=== PATIENT | female | born 2000 | race American Indian/Alaskan Native ===

== ENCOUNTER 2018-07-02 16:48 | Emergency (ER) | payer MEDICAID, OTHER ==
--- NOTE | 2018-07-02 17:36 | Emergency Department Report ---
<JAYESH BLACK AKIRAWEN - Last Filed: 07/02/18 19:03> ED Female HPI - General Chief complaint: Abdominal Pain Stated complaint: LOWER ABD PAIN Source: patient Mode of arrival: Ambulatory Limitations: No Limitations - History of Present Illness Initial comments: This is a 17-year-old female who presents with pelvic pain and light vaginal bleeding for 3 days. Patient reports last menstrual period was a couple weeks ago. She reports a history of severe abdominal cramping heavy bleeding during menses. Currently patient noticed blood with white. She also reports pressure 2 suprapubic region that is worse with movement. She denies dysuria, back pain, vaginal discharge, frequency, or urgency. MD Complaint: pelvic pain Onset/Timin -: days(s) Location: suprapubic Radiation: non-radiating Severity: severe Severity scale (0 -10): 10 Quality: other (pressurev) Consistency: intermittent Improves with: none Worsens with: movement Are you Now?: No Last Menstrual Period: 06/18/18 EDC: 03/25/19 Associated Symptoms: vaginal bleeding, abdominal pain. denies: vaginal discharge, nausea/vomiting, fever/chills, headaches, loss of appetite, dysuria, hematuria, rash, seizure, shortness of breath, syncope, weakness - Related Data Sexually active: No : 0 Para: 0 A: 0 Previous Rx's Medication Instructions Recorded Last Taken Type Acetaminophen/Codeine [Tylenol #3] 1 tab PO Q6H PRN #12 tab 09/10/13 Unknown Rx Ferrous Sulfate [Iron] 325 mg PO BID #60 tablet 07/03/18 Unknown Rx Ibuprofen 800 mg PO TID PRN #30 tablet 07/03/18 Unknown Rx Sennosides [Senna] 8.6 mg PO BID #60 tablet 07/03/18 Unknown Rx Allergies Allergy/AdvReac Type Severity Reaction Status Date / Time No Known Allergies Allergy Unverified 09/10/13 21:01 ED Review of Systems Constitutional: denies: chills, fever Respiratory: denies: cough, shortness of breath, wheezing Cardiovascular: denies: chest pain, palpitations Gastrointestinal: abdominal pain. denies: nausea, diarrhea Genitourinary: abnormal menses. denies: urgency, dysuria, discharge Musculoskeletal: denies: back pain Neurological: denies: headache, weakness, paresthesias Psychiatric: denies: anxiety, depression ED Past Medical Hx - Past Medical History Previous Medical History?: No - Surgical History Past Surgical History?: No - Social History Smoking Status: Never Smoker Substance Use Type: None - Medications Home Medications: Home Medications Medication Instructions Recorded Confirmed Last Taken Type Acetaminophen/Codeine [Tylenol #3] 1 tab PO Q6H PRN #12 tab 09/10/13 Unknown Rx Ferrous Sulfate [Iron] 325 mg PO BID #60 tablet 07/03/18 Unknown Rx Ibuprofen 800 mg PO TID PRN #30 tablet 07/03/18 Unknown Rx Sennosides [Senna] 8.6 mg PO BID #60 tablet 07/03/18 Unknown Rx ED Physical Exam - General Limitations: No Limitations General appearance: alert, in no apparent distress - Respiratory Respiratory exam: Present: normal lung sounds bilaterally. Absent: respiratory distress - Cardiovascular Cardiovascular Exam: Present: regular rate, normal rhythm. Absent: systolic murmur, diastolic murmur, rubs, gallop - GI/Abdominal GI/Abdominal exam: Present: soft, tenderness (right upper quadrant and left lower quadrant tenderness), normal bowel sounds. Absent: distended, guarding, rebound, rigid - Back Exam Back exam: Absent: CVA tenderness (R), CVA tenderness (L) - Neurological Exam Neurological exam: Present: alert, oriented X3 - Psychiatric Psychiatric exam: Present: normal affect, normal mood - Skin Skin exam: Present: warm, dry, intact, normal color. Absent: rash ED Medical Decision Making - Lab Data Result diagrams: 07/02/18 18:21 - Medical Decision Making Patient was examined by me. Vitals are normal and patient is in no acute distress. Obtained a urinalysis, urine hCG, CBC, and transvaginal and pelvic ultrasound. Negative test, moderate blood on urinalysis. CBC and ultrasound pending. Chart signed to nurse practitioner Amalia Garza ED Disposition Clinical Impression: Symptomatic anemia Iron deficiency anemia Qualifiers: Iron deficiency anemia type: chronic blood loss Qualified Code(s): D50.0 - Iron deficiency anemia secondary to blood loss (chronic) Menorrhagia Qualifiers: Menorrahagia type: with regular cycle Qualified Code(s): N92.0 - Excessive and frequent menstruation with regular cycle Disposition: TO HOME OR SELFCARE Condition: Stable Instructions: Iron Deficiency Anemia (ED), Iron Rich Diet (ED), Anemia (ED), Abdominal Pain (ED) Prescriptions: Ferrous Sulfate [Iron] 325 mg PO BID #60 tablet Ibuprofen 800 mg PO TID PRN #30 tablet PRN Reason: Pain , Severe (7-10) Sennosides [Senna] 8.6 mg PO BID #60 tablet Referrals: DEENA CHAND MD [Staff Physician] - 3-5 Days Forms: Work/School Release Form(ED) <TRENTON GARZA - Last Filed: 07/03/18 06:40> ED Review of Systems ROS: Stated complaint: LOWER ABD PAIN Other details as noted in HPI ED Course Vital Signs 07/02/18 07/02/18 07/02/18 16:52 19:10 20:23 Temperature 100.1 F H Pulse Rate 77 99 H Respiratory 16 17 15 Rate Blood Pressure 110/70 Blood Pressure 117/72 [Right] O2 Sat by Pulse 99 100 Oximetry 07/02/18 07/02/18 07/02/18 21:52 22:04 22:20 Temperature 99.2 F 99.2 F 99.3 F Pulse Rate 85 83 84 Respiratory 20 20 20 Rate Blood Pressure 114/57 108/48 106/61 Blood Pressure [Right] O2 Sat by Pulse 100 100 100 Oximetry 07/02/18 07/02/18 07/02/18 22:50 23:03 23:06 Temperature 99.3 F 99.5 F Pulse Rate 85 85 Respiratory 20 20 20 Rate Blood Pressure 99/55 101/55 Blood Pressure [Right] O2 Sat by Pulse 100 100 Oximetry 07/02/18 07/02/18 07/03/18 23:18 23:48 00:06 Temperature 99.5 F 99.3 F Pulse Rate 86 85 Respiratory 20 20 20 Rate Blood Pressure 100/59 100/57 Blood Pressure [Right] O2 Sat by Pulse 100 100 Oximetry 07/03/18 07/03/18 07/03/18 00:18 00:39 00:43 Temperature 99.4 F 99.2 F 99.3 F Pulse Rate 88 87 81 Respiratory 20 20 20 Rate Blood Pressure 101/60 90/48 90/45 Blood Pressure [Right] O2 Sat by Pulse 100 100 100 Oximetry 07/03/18 07/03/18 07/03/18 01:04 01:19 01:49 Temperature 99.3 F 99.3 F 99.3 F Pulse Rate 80 81 76 Respiratory 20 20 20 Rate Blood Pressure 93/50 92/41 107/59 Blood Pressure [Right] O2 Sat by Pulse 100 100 100 Oximetry 07/03/18 07/03/18 07/03/18 02:19 02:20 02:49 Temperature 99.2 F 99.3 F 99.3 F Pulse Rate 76 77 75 Respiratory 20 20 20 Rate Blood Pressure 102/57 102/57 102/63 Blood Pressure [Right] O2 Sat by Pulse 100 100 100 Oximetry 07/03/18 03:18 Temperature 99.3 F Pulse Rate 77 Respiratory 20 Rate Blood Pressure 102/63 Blood Pressure [Right] O2 Sat by Pulse 100 Oximetry ED Medical Decision Making - Lab Data Result diagrams: 07/03/18 05:38 Labs 07/02/18 07/02/18 17:05 18:21 WBC 11.5 H RBC 3.42 L Hgb 5.1 L* Hct 19.5 L* MCV 57 L MCH 15 L MCHC 26 L RDW 31.0 H Plt Count 67 L Urine Color Yellow Urine Turbidity Clear Urine pH 5.0 Ur Specific [place] 1.023 Urine Protein 30 mg/dl Urine Glucose (UA) Neg Urine Ketones 20 Urine Blood Mod Urine Nitrite Neg Urine Bilirubin Neg Urine Urobilinogen < 2.0 Ur Leukocyte Esterase Neg Urine WBC (Auto) < 1.0 Urine RBC (Auto) 19.0 U Epithel Cells (Auto) 2.0 Urine Mucus 3+ Urine HCG, Qual Negative - Medical Decision Making h/h 5.1/19.7, Ultrasound, there is minimal vaginal spotting at this time no fever or chills no n/v , pt has hx of Fe deficiency anemia, hospitalist consulted, recommendation Transfuse PRBC x 3 units , premedicate with benadryl and tylenol, consent noted, discussed same with patient, patient verbalized understanding and agreement with treatment plan. will dc to home with FESO4 325mg po bid, follow up INDUSTRIAL ANALYST in 1-2 days, return to ed if symptoms worsen, 0631: PRBC x 3 unit Iv is completed pt tolerated without incident, repeat H/h is 9.3 and /29.4, plan, dc to home with rx for FESO4 325mg po bid, follow up INDUSTRIAL ANALYST Dr. Chand in 2 days return to emergency if symptoms return or worsen, pt verbalized agreement and understanding of same pt denies vaginal bleeding at this time, no n/v no fever no chills , pt home in stable condition at this time. Critical care attestation.: If time is entered above; I have spent that time in minutes in the direct care of this critically ill patient, excluding procedure time. ED Disposition Is pt being admited?: No Does the pt Need Aspirin: No Time of Disposition: 06:38
[2018-07-02] MEDS ORDERED: TYLENOL PO ONE ×2 (17:41→20:28)
[2018-07-02 17:56] LABS: Bilirubin,Urine NEG (Negative); Blood,Urine MOD (Negative); Color,Urine Yellow (Yellow); Mucus,Urine 3+ /HPF; Urobilinogen,Urine < 2.0 mg/dL (<2.0); WBC,Urine < 1.0 /HPF (0.0-6.0)
[2018-07-02 18:01] LABS: HCG Qualitative,Urine Negative (Negative)
[2018-07-02 18:35] LABS: Mean Corpuscular HGB Conc 26 % (30-34); Red Blood Count 3.42 M/mm3 (3.65-5.03)
[2018-07-02 18:55] LABS: Hematocrit 19.5 % (30.3-42.9); Hemoglobin 5.1 gm/dl (10.1-14.3); Mean Corpuscular Volume 57 fl (79-97)
[2018-07-02 19:37] LABS: Platelet Count 67 K/mm3 (140-440)
[2018-07-02] MEDS ORDERED: BENADRYL PO ONE (20:28)
[2018-07-02] MEDS ORDERED: NACL 0.9% 500 ML 500 ML IV ONE (20:28)
[2018-07-02] MEDS ORDERED: NACL 0.9% 1000 ML 1,000 ML IV ONE (20:28)
--- NOTE | 2018-07-02 20:36 | Consultation ---
History of Present Illness - Reason for Consult Consult date: 07/02/18 anemia - History of Present Illness 17 YO Female with Menorrhagia and iron deficiency anemia presents to ED for evaluation. Pt seen and evaluated in ED and found to have anemia. Pt denies fever, chills, CP, Palpitations, NVD, Trauma, BRBPR, Unintentional weight loss, night sweats, or bone pain. Recommend PRBC transfusion, as well as premedication with Tylenol and Benadryl. Pt may be discharged home after transfusion. Notify hospitalist if further concerns, or abnormal test results. Outpatient LASTING ROOM SUPERVISOR f/u care. Past History Past Medical History: anemia Past Surgical History: No surgical history, Other (reviewed) Social history: single, lives with family Family history: other (anemia) Medications and Allergies Allergies Allergy/AdvReac Type Severity Reaction Status Date / Time No Known Allergies Allergy Unverified 09/10/13 21:01 Home Medications Medication Instructions Recorded Confirmed Last Taken Type Acetaminophen/Codeine [Tylenol #3] 1 tab PO Q6H PRN #12 tab 09/10/13 Unknown Rx Active Meds: Active Medications Sodium Chloride (Nacl 0.9% 1000 Ml) 1,000 mls @ 999 mls/hr IV BOLUS ONE Stop: 07/02/18 21:28 Review of Systems Constitutional: weakness, no weight gain, no fever, no chills, no sweats, no night sweats Ears, nose, mouth and throat: no ear pain, no ear discharge, no tinnitis, no decreased hearing, no nose pain, no nasal congestion, no nasal discharge Breasts: no change in shape, no swelling, no mass Cardiovascular: no chest pain, no orthopnea, no palpitations, no edema, no syncope Respiratory: no cough, no cough with sputum, no excessive sputum, no hemoptysis, no dyspnea on exertion Gastrointestinal: no nausea, no vomiting, no diarrhea, no constipation Genitourinary Female: menorrhagia, no pelvic pain, no flank pain, no urinary frequency, no urgency, no stress incontinence, no post void dribbling Rectal: no pain, no incontinence, no bleeding Musculoskeletal: no neck stiffness, no neck pain, no shooting arm pain, no arm numbness/tingling, no low back pain Integumentary: no rash, no pruritis, no sores, no wounds, no boils Neurological: no head injury, no transient paralysis, no paralysis Psychiatric: no anxiety, no memory loss, no sleep disturbances, no hypersomnia Endocrine: no cold intolerance, no heat intolerance, no polyphagia, no excessive thirst, no polyuria Hematologic/Lymphatic: no easy bruising, no easy bleeding Allergic/Immunologic: no urticaria, no allergic rhinitis, no wheezing Exam - Constitutional Vitals: Temp Pulse Resp BP Pulse Ox 100.1 F H 99 H 15 117/72 100 07/02/18 16:52 07/02/18 20:23 07/02/18 20:23 07/02/18 20:23 07/02/18 20:23 General appearance: Present: no acute distress, well-nourished - EENT Eyes: Present: PERRL ENT: hearing intact, clear oral mucosa - Neck Neck: Present: supple, normal ROM - Respiratory Respiratory effort: normal Respiratory: bilateral: CTA - Cardiovascular Heart Sounds: Present: S1 & S2. Absent: rub, click - Extremities Extremities: pulses symmetrical, No edema Peripheral Pulses: within normal limits - Abdominal General gastrointestinal: Present: soft, non-tender, non-distended, normal bowel sounds Female genitourinary: Present: normal - Integumentary Integumentary: Present: clear, warm, dry - Musculoskeletal Musculoskeletal: gait normal, strength equal bilaterally - Psychiatric Psychiatric: appropriate mood/affect, intact judgment & insight - Neurologic Neurologic: CNII-XII intact, moves all extremities Results - Labs CBC & Chem 7: 07/02/18 18:21 Labs: Abnormal lab results 07/02/18 Range/Units 18:21 WBC 11.5 H (4.5-11.0) K/mm3 RBC 3.42 L (3.65-5.03) M/mm3 Hgb 5.1 L* (10.1-14.3) gm/dl Hct 19.5 L* (30.3-42.9) % MCV 57 L (79-97) fl MCH 15 L (28-32) pg MCHC 26 L (30-34) % RDW 31.0 H (13.2-15.2) % Plt Count 67 L (140-440) K/mm3 Assessment and Plan - Patient Problems (1) Iron deficiency anemia Current Visit: Yes Status: Acute Qualifiers: Iron deficiency anemia type: chronic blood loss Qualified Code(s): D50.0 - Iron deficiency anemia secondary to blood loss (chronic) Plan to address problem: PRBC Transfusion, Iron replacement therapy, OUtpatient f/U pcp 1wk, LASTING ROOM SUPERVISOR f/U at discharge for menorrhagia.
--- NOTE | 2018-07-02 21:41 | Ultrasound Report ---
FINAL REPORT EXAM: US PELVIC COMPLETE HISTORY: pelvic pain TECHNIQUE: Real-time sonography was performed of the pelvis transabdominally. Images are submitted f or interpretation. PRIORS: None. FINDINGS: The uterus appears normal measuring 7.8 x 3.7 x 4.5 cm. The endometrial stripe appears normal measuri ng 14 mm. There is a complex cyst with a thick septation or 2 adjacent follicles in the right ovary, measured t ogether at 3.4 x 3.3 x 3.5 cm. The right ovary measures 3.7 x 4.6 x 4.5 cm. The left ovary appears normal measuring 3.5 x 2.2 x 2.4 cm cm. Color Doppler evaluation of the ovaries shows flow bilaterally. There is no free pelvic fluid. IMPRESSION: Complex cyst with a thick septation or 2 adjacent follicles in the right ovary. Recommend follow-up p elvic ultrasound 6-8 weeks.
[2018-07-02] MEDS ORDERED: TYLENOL ONE (23:03)
[2018-07-03 05:51] LABS: Hematocrit 29.4 % (30.3-42.9); Hemoglobin 9.3 gm/dl (10.1-14.3)
[2018-07-03 06:32] VITALS: BP 110/72
== END 2018-07-03 07:04 | disposition home or self-care (01) ==
LOC: ED 16:48
DX: D50.9 Iron deficiency anemia, unspecified (principal); D64.89 Other specified anemias; N92.0 Excessive and frequent menstruation with regular cycle
CPT/HCPCS: 36415; 36430; 76856; 81001; 81025; 85014; 85018; 85027; 86850; 86900; 86901; 86920; 96360; 96361; 99284; J7030; P9016

== ENCOUNTER 2019-02-14 18:43 | Emergency (ER) | payer SELFPAY ==
--- NOTE | 2019-02-14 18:47 | Emergency Department Report ---
Blank Doc - Documentation Documentation: 18-year-old female that presents with generalized weakness. This initial assessment/diagnostic orders/clinical plan/treatment(s) is/are subject to change based on patient's health status, clinical progression and re- assessment by fellow clinical providers in the ED. Further treatment and workup at subsequent clinical providers discretion. Patient/guardians urged not to elope from the ED as their condition may be serious if not clinically assessed and managed. Initial orders include: 1- Patient sent to [facility] for further evaluation and treatment 2- labs
[2019-02-14 19:03] LABS: Basophils # (Auto) 0.1 K/mm3 (0.0-0.1); Basophils % (Auto) 0.7 % (0.0-1.8); Eosinophils % (Auto) 0.4 % (0.0-4.3); Hematocrit 29.4 % (30.3-42.9); Lymphocytes # (Auto) 1.9 K/mm3 (1.2-5.4); Mean Corpuscular HGB Conc 30 % (30-34); Monocytes # (Auto) 0.6 K/mm3 (0.0-0.8); Monocytes % (Auto) 7.7 % (0.0-7.3); Platelet Count 218 K/mm3 (140-440); Red Blood Count 4.73 M/mm3 (3.65-5.03); Red Cell Distribution Width 19.9 % (13.2-15.2)
[2019-02-14 19:07] LABS: Mean Corpuscular Volume 62 fl (79-97)
[2019-02-14 19:16] VITALS: BP 115/66
[2019-02-14 19:16] LABS: BUN/Creatinine Ratio 25; Blood Urea Nitrogen 10 mg/dL (7-17); Calcium 9.3 mg/dL (8.4-10.2); Hemolysis Index 18
[2019-02-14 20:31] LABS: Bacteria,Urine 2+ /HPF (Negative); Bilirubin,Urine NEG (Negative); Blood,Urine NEG (Negative); Color,Urine Yellow (Yellow); Mucus,Urine 3+ /HPF; Urobilinogen,Urine < 2.0 mg/dL (<2.0)
[2019-02-14] MEDS ORDERED: REGLAN PO ONE (22:32)
[2019-02-14] MEDS ORDERED: KEFLEX PO ONE (22:32)
--- NOTE | 2019-02-14 23:12 | Emergency Department Report ---
ED General Adult HPI - General Chief complaint: Weakness Stated complaint: FEEL WEAK/DIZZY Time Seen by Provider: 02/14/19 18:46 Source: patient Mode of arrival: Ambulatory Limitations: No Limitations - History of Present Illness Initial comments: Patient is a nulliparous 18-year-old -[place] female with a history of chronic iron deficiency anemia presents to the ED with a complaint of acute onset persistent generalized weakness and fatigue, nausea and malaise and lack of appetite for the last 1 week. Patient admits that she missed her menstrual cycle last month but unsure whether she may be . Patient denies abdominal pain, vomiting, dysuria, urinary frequency and urgency, vaginal bleeding, chest pain, shortness of breath, fever, chills, cough, nasal and sinus congestion or diarrhea. MD Complaint: Weakness; Fatigue and malaise -: Sudden, week(s) (1) Location: head Radiation: non-radiation Severity scale (0 -10): 2 Quality: dull Consistency: intermittent Improves with: none Worsens with: none Associated Symptoms: denies other symptoms, loss of appetite, malaise, weakness. denies: confusion, chest pain, cough, diaphoresis, fever/chills, headaches, nausea/vomiting, rash, seizure, shortness of breath Treatments Prior to Arrival: none - Related Data Previous Rx's Medication Instructions Recorded Last Taken Type Acetaminophen/Codeine [Tylenol #3] 1 tab PO Q6H PRN #12 tab 09/10/13 Unknown Rx Ferrous Sulfate [Iron 325 MG] 325 mg PO BID #60 tablet 07/03/18 Unknown Rx Ibuprofen [Ibuprofen 800] 800 mg PO TID PRN #30 tablet 07/03/18 Unknown Rx Sennosides [Senna] 8.6 mg PO BID #60 tablet 07/03/18 Unknown Rx 78/Iron/Folate 1/Dha 1 each PO DAILY #60 capsule 02/14/19 Unknown Rx [Prenate Dha Softgel] Promethazine [Phenergan] 25 mg PO Q6HR PRN #30 tab 02/14/19 Unknown Rx cephALEXin [Keflex] 500 mg PO Q8HR #30 cap 02/14/19 Unknown Rx Allergies Allergy/AdvReac Type Severity Reaction Status Date / Time No Known Allergies Allergy Unverified 09/10/13 21:01 ED Review of Systems ROS: Stated complaint: FEEL WEAK/DIZZY Other details as noted in HPI Constitutional: malaise, weakness. denies: chills, fever Eyes: denies: eye pain, eye discharge, vision change ENT: denies: ear pain, throat pain Respiratory: denies: cough, shortness of breath, wheezing Cardiovascular: denies: chest pain, palpitations, dyspnea on exertion, syncope, paroxysmal nocturnal dyspnea Endocrine: no symptoms reported Gastrointestinal: nausea. denies: abdominal pain, diarrhea, constipation, hematemesis Genitourinary: denies: urgency, dysuria, frequency, hematuria, discharge, abnormal menses, dyspareunia Musculoskeletal: denies: back pain, joint swelling, arthralgia Skin: denies: rash, lesions Neurological: denies: headache, weakness, paresthesias Psychiatric: denies: anxiety, depression Hematological/Lymphatic: denies: easy bleeding, easy bruising ED Past Medical Hx - Past Medical History Previous Medical History?: No - Surgical History Past Surgical History?: No - Social History Smoking Status: Never Smoker Substance Use Type: None - Medications Home Medications: Home Medications Medication Instructions Recorded Confirmed Last Taken Type Acetaminophen/Codeine [Tylenol #3] 1 tab PO Q6H PRN #12 tab 09/10/13 Unknown Rx Ferrous Sulfate [Iron 325 MG] 325 mg PO BID #60 tablet 07/03/18 Unknown Rx Ibuprofen [Ibuprofen 800] 800 mg PO TID PRN #30 tablet 07/03/18 Unknown Rx Sennosides [Senna] 8.6 mg PO BID #60 tablet 07/03/18 Unknown Rx 78/Iron/Folate 1/Dha 1 each PO DAILY #60 capsule 02/14/19 Unknown Rx [Prenate Dha Softgel] Promethazine [Phenergan] 25 mg PO Q6HR PRN #30 tab 02/14/19 Unknown Rx cephALEXin [Keflex] 500 mg PO Q8HR #30 cap 02/14/19 Unknown Rx ED Physical Exam - General Limitations: No Limitations General appearance: alert, in no apparent distress - Head Head exam: Present: atraumatic, normocephalic, normal inspection - Eye Eye exam: Present: normal appearance, PERRL, EOMI Pupils: Present: normal accommodation - ENT ENT exam: Present: normal exam, normal orophraynx, mucous membranes moist, TM's normal bilaterally, normal external ear exam - Neck Neck exam: Present: normal inspection, full ROM - Respiratory Respiratory exam: Present: normal lung sounds bilaterally. Absent: respiratory distress, wheezes, rales, rhonchi, chest wall tenderness, accessory muscle use, prolonged expiratory - Cardiovascular Cardiovascular Exam: Present: regular rate, normal rhythm, normal heart sounds. Absent: systolic murmur, diastolic murmur, rubs, gallop - GI/Abdominal GI/Abdominal exam: Present: soft, normal bowel sounds. Absent: tenderness, guarding, rebound, hypoactive bowel sounds - Extremities Exam Extremities exam: Present: normal inspection, full ROM, normal capillary refill - Back Exam Back exam: Present: normal inspection, full ROM. Absent: muscle spasm, paraspinal tenderness, vertebral tenderness - Neurological Exam Neurological exam: Present: alert, oriented X3, CN II-XII intact, normal gait, reflexes normal - Psychiatric Psychiatric exam: Present: normal affect, normal mood - Skin Skin exam: Present: warm, dry, intact, normal color. Absent: rash ED Course Vital Signs 02/14/19 19:13 Temperature 98.4 F Pulse Rate 75 Respiratory 18 Rate Blood Pressure 115/66 O2 Sat by Pulse 100 Oximetry - Reevaluation(s) Reevaluation #1: 02/14/19 23:13 This is a 18-year-old female who presented to the ED with generalized weakness, malaise and fatigue with nausea for the last 1 week. In the ED, patient is alert and oriented 3 and is not in distress. Lab test results show hemoglobin of 9.0, hematocrit of 29.4 with MCV of 62. The lab test also showed a positive hCG test consistent with with hCG Quant of [id number]. Urinalysis showed significant urinary tract infection. Patient was treated in the ED and on reevaluation, patient felt a little better. Patient discharged home on vitamins and Keflex for urinary tract infection and referred to the JUNIOR LOAN PROCESSOR physician solution advisor Dr. Edwin johnson for follow-up in 5-7 days. Patient was advised to return to the ED immediately if symptoms get worse. 02/14/19 23:14 02/14/19 23:15 ED Medical Decision Making - Lab Data Result diagrams: 02/14/19 18:50 02/14/19 18:50 - Medical Decision Making This is a 18-year-old female who presented to the ED with generalized weakness, malaise and fatigue with nausea for the last 1 week. In the ED, patient is alert and oriented 3 and is not in distress. Lab test results show hemoglobin of 9.0, hematocrit of 29.4 with MCV of 62. The lab test also showed a positive hCG test consistent with with hCG Quant of [id number]. Urinalysis showed significant urinary tract infection. Patient was treated in the ED and on reevaluation, patient felt a little better. Patient discharged home on vitamins and Keflex for urinary tract infection and referred to the JUNIOR LOAN PROCESSOR physician solution advisor Dr. Ugarte were for follow-up in 5-7 days. Patient was advised to return to the ED immediately if symptoms get worse. - Differential Diagnosis Chronic iron deficiency anemia; Acute UTI; Critical care attestation.: If time is entered above; I have spent that time in minutes in the direct care of this critically ill patient, excluding procedure time. ED Disposition Clinical Impression: Generalized weakness, Chronic iron deficiency anemia, Acute urinary tract infection Qualifiers: Weeks of gestation: less than 8 weeks Qualified Code(s): Z3A.01 - Less than 8 weeks gestation of Disposition: DC-01 TO HOME OR SELFCARE Is pt being admited?: No Does the pt Need Aspirin: No Condition: Stable Instructions: (ED), Iron Deficiency Anemia (ED), Urinary Tract In fection in Women (ED), Weakness (ED) Additional Instructions: Take medications with food, drink plenty of fluids and follow-up with your JUNIOR LOAN PROCESSOR physician in 5-7 days for reevaluation. Return to the ED immediately if symptoms get worse. Prescriptions: cephALEXin [Keflex] 500 mg PO Q8HR #30 cap Promethazine [Phenergan] 25 mg PO Q6HR PRN #30 tab PRN Reason: Nausea 78/Iron/Folate 1/Dha [Prenate Dha Softgel] 1 each PO DAILY #60 capsule Referrals: JESSIKA UGARTE MD [Staff Physician] - 3-5 Days Time of Disposition: 23:09 Print Language: HEBREW
== END 2019-02-14 23:44 | disposition home or self-care (01) ==
LOC: ED 18:43
DX: O23.41 Unspecified infection of urinary tract in pregnancy, first trimester (principal); O99.011 Anemia complicating pregnancy, first trimester; Z79.899 Other long term (current) drug therapy; Z79.1 Long term (current) use of non-steroidal anti-inflammatories (NSAID); Z3A.01 Less than 8 weeks gestation of pregnancy
CPT/HCPCS: 36415; 80048; 81001; 84702; 84703; 85025; 87086; 99283

== ENCOUNTER 2019-03-24 14:30 | Emergency (ER) | payer SELFPAY ==
[2019-03-24 14:39] VITALS: BP 117/54
== END 2019-03-24 16:52 | disposition left against medical advice (07) ==
LOC: ED 14:30
DX: Z53.21 Procedure and treatment not carried out due to patient leaving prior to being seen by health care provider (principal)

== ENCOUNTER 2019-04-02 15:57 | Emergency (ER) | payer SELFPAY ==
[2019-04-02 16:20] VITALS: BP 104/62
--- NOTE | 2019-04-02 16:20 | Emergency Department Report ---
Blank Doc - Documentation Documentation: 18-year-old female that presents with intermittent headaches with n/v. Stated is about but is not sure how long. Denies any vaginal bleeding or pelvic pain. This initial assessment/diagnostic orders/clinical plan/treatment(s) is/are subject to change based on patient's health status, clinical progression and re- assessment by fellow clinical providers in the ED. Further treatment and workup at subsequent clinical providers discretion. Patient/guardians urged not to elope from the ED as their condition may be serious if not clinically assessed and managed. Initial orders include: 1- Patient sent to [facility] for further evaluation and treatment 2- labs 3- UA
[2019-04-02 18:11] LABS: Basophils % (Auto) 0.4 % (0.0-1.8); Eosinophils % (Auto) 0.8 % (0.0-4.3); Hematocrit 29.6 % (30.3-42.9); Hemoglobin 9.1 gm/dl (10.1-14.3); Lymphocytes # (Auto) 1.2 K/mm3 (1.2-5.4); Lymphocytes % (Auto) 21.4 % (13.4-35.0); Mean Corpuscular HGB Conc 31 % (30-34); Monocytes # (Auto) 0.3 K/mm3 (0.0-0.8); Monocytes % (Auto) 5.7 % (0.0-7.3); Platelet Count 234 K/mm3 (140-440); Red Blood Count 4.72 M/mm3 (3.65-5.03)
[2019-04-02 18:12] LABS: Alanine Aminotransferase 7 units/L (7-56); Albumin 4.1 g/dL (3.9-5); BUN/Creatinine Ratio 23; Blood Urea Nitrogen 7 mg/dL (7-17); Hemolysis Index 0
[2019-04-02 18:19] LABS: Mean Corpuscular Volume 63 fl (79-97); Red Cell Distribution Width 21.2 % (13.2-15.2)
[2019-04-02 18:21] LABS: Bilirubin,Urine NEG (Negative); Blood,Urine NEG (Negative); Color,Urine Yellow (Yellow); Mucus,Urine 3+ /HPF
[2019-04-02] MEDS ORDERED: ACETAMINOPHEN 325 MG TAB PO ONE (19:26)
[2019-04-02] MEDS ORDERED: ONDANSETRON 4 MG ODT TAB PO ONE (19:26)
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
== END 2019-04-02 19:50 | disposition home or self-care (01) ==
LOC: ED 15:57
DX: O26.891 Other specified pregnancy related conditions, first trimester (principal); R51 Headache; M54.5 Low back pain; Z79.899 Other long term (current) drug therapy; Z3A.01 Less than 8 weeks gestation of pregnancy
CPT/HCPCS: 36415; 80053; 81001; 84702; 85025; Q0162

== ENCOUNTER 2019-06-23 08:25 | Emergency (ER) | payer MEDICAID ==
[2019-06-23 08:30] VITALS: BP 114/72
--- NOTE | 2019-06-23 11:13 | Emergency Department Report ---
Chief Complaint: Earache Stated Complaint: L EAR PAIN Time Seen by Provider: 06/23/19 10:56 - HPI History of Present Illness: Patient here complaining of left earache times one week. She goes to [facility] 24 weeks without any related problems. She reports that her complaint is left ear pain. Denies any injury, drainage, nausea vomiting or fever or chills. Denies any abdominal pain, denies any urinary burning frequency or urgency. Denies vaginal bleeding. Left earache is 8/10 and achy. Denies any cough, nasal congestion or runny nose. Denies any shortness of breath or chest pain. No medication taken for pain. He comes emergency room. - ROS Review of Systems: Positive left earache otherwise all other symptoms are negative. - Exam Vital Signs: Vital Signs 06/23/19 08:28 Temperature 97.9 F Pulse Rate 80 Respiratory 16 Rate Blood Pressure 114/72 O2 Sat by Pulse 100 Oximetry Physical Exam: ENT Ears: Bilateral ears with cerumen impaction. Unable to visualize TM. Bilateral tract is nontender to palpate. No drainage or bleeding. Bilateral nasal mucosa normal exam. No pharyngeal erythema or exudate. [facility] [place] screening note: Focused history and physical exam performed. Due to findings the following was ordered: Patient's screened and medical screening forms signed the patient and myself. She voices understanding of need to follow-up with primary care as recommended for full of cerumen Patient discussed with doctor:: KARLA JENNINGS ED Medical Decision Making - Medical Decision Making Patient given community outpatient clinics information for follow-up primary care. Discharged home in stable condition. ED Disposition for MSE Clinical Impression: Impacted cerumen of left ear Disposition: MED SCREENING EXAM-LEFT Condition: Stable
== END 2019-06-23 11:30 | disposition left against medical advice (07) ==
LOC: ED 08:25
DX: H61.22 Impacted cerumen, left ear (principal)
CPT/HCPCS: 99281

== ENCOUNTER 2021-08-03 08:35 | Day surgery (SDC) | payer MEDICAID ==
[2021-07-30 10:19] LABS: Hematocrit 29.9 % (30.3-42.9); Hemoglobin 8.7 gm/dl (10.1-14.3); Mean Corpuscular HGB Conc 29 % (30-34); Mean Corpuscular Volume 60 fl (79-97); Platelet Count 178 K/mm3 (140-440); Red Blood Count 4.99 M/mm3 (3.65-5.03); Red Cell Distribution Width 18.3 % (13.2-15.2)
[~2021-08-03 08:35] MED LIST: ACETAMINOPHEN 500 MG TAB PO SCH; LACTATED RINGERS 1,000 ML IV SCH; MIDAZOLAM 2 MG/2 ML INJ IV NR; SCOPOLAMINE TRANSDERMAL PATCH 72 HR TD NR
--- NOTE | 2021-08-03 09:13 | Anesthesia Consultation ---
Anesthesia Consult and Med Hx Date of service: 08/03/21 - Airway Anesthetic Teeth Evaluation: Good ROM Head & Neck: Adequate Mental/Hyoid Distance: Adequate Mallampati Class: Class II Intubation Access Assessment: Probably Good - Pre-Operative Health Status ASA Pre-Surgery Classification: ASA2 Proposed Anesthetic Plan: General - Pulmonary Hx Smoking: Yes ([facility] only) Hx Respiratory Symptoms: No - Cardiovascular System Hx Hypertension: No - Central Nervous System CVA: No - Endocrine Hx Renal Disease: No Hx Liver Disease: No Hx Insulin Dependent Diabetes: No Hx Non-Insulin Dependent Diabetes: No Hx Thyroid Disease: No - Hematic Hx Anemia: Yes - Other Systems Hx Substance Use: Yes ([facility]) Hx Obesity: No - Additional Comments Anesthesia Medical History Comments: No hx anesthetic complications.
[2021-08-03] MEDS ORDERED: oxyCODONE /ACETAMINOPHEN 5-325MG TAB PO PRN (09:14)
[2021-08-03] MEDS ORDERED: ONDANSETRON 4 MG/2 ML INJ IV PRN (09:14)
--- NOTE | 2021-08-03 09:14 | Anesthesia Day of Surgery ---
Anesthesia Day of Surgery - Day of Surgery Patient Examined: Yes Patient H&P Reviewed: Yes Patient is NPO: Yes
[2021-08-03] MEDS ORDERED: METHYLENE BLUE 50 MG/10 ML AMP ONE (10:13)
[2021-08-03] MEDS ORDERED: propofoL 200 MG/20 ML VIAL IV ONE (10:26)
[2021-08-03] MEDS ORDERED: LIDOCAINE MPF (2%) 20 MG/1 ML VIAL 5 ML ONE (10:26)
[2021-08-03] MEDS ORDERED: ONDANSETRON 4 MG/2 ML INJ ONE (10:26)
[2021-08-03] MEDS ORDERED: fentaNYL 100 MCG/2 ML INJ ONE (10:26)
[2021-08-03] MEDS ORDERED: SODIUM CHLORIDE P/F VIAL 10 ML 10 ML ONE (10:28)
[2021-08-03] MEDS ORDERED: LIDOCAINE (1%) 10 MG/1 ML VIAL 20 ML MDV ONE (10:28)
[2021-08-03] MEDS ORDERED: TRIAMCINOLONE 40 MG/1 ML INJ ONE ×2 (10:28→11:09)
[2021-08-03] MEDS ORDERED: SODIUM CHLORIDE 0.9% P/F 10 ML VIAL IV ONE (11:05)
[2021-08-03] MEDS ORDERED: TRIAMCINOLONE 40 MG/1 ML INJ IM ONE (11:05)
[2021-08-03] MEDS ORDERED: dexAMETHasone 20 MG/5 ML VIAL ONE (11:16)
[2021-08-03] MEDS ORDERED: SODIUM CHLORIDE 0.9% IRR 1,500 ML BOTTLE IR ONE (11:17)
[2021-08-03] MEDS ORDERED: KETOROLAC 30 MG/1 ML INJ ONE (11:18)
[2021-08-03] MEDS: HYDROmorphone 1 MG/1 ML INJ IV PRN ×2 (11:50→12:07)
--- NOTE | 2021-08-03 13:50 | Post Anesthesia Evaluation ---
- Post Anesthesia Evaluation Patient Participated: Yes Airway Patent: Yes Stable Respiratory Function: Yes Nausea/Vomiting: No Temp > 96.8F: Yes Pain Manageable: Yes Adequeate Hydration: Yes Anesthesia Complications: No
[2021-08-03 14:46] VITALS: BP 129/84
--- NOTE | 2021-08-07 09:08 | Operative Report ---
Operative Report Operative Report: Preoperative diagnosis: Keloid of previous Pfannenstiel scar Postoperative diagnosis: Same Procedure: Keloid scar revision Surgeon: Dr. Fernanda Li Anesthesia: GETA Complications: None EBL: Less than 50 mL IV fluids: 1 L course Urine output: Adequate and clear Drain: None Findings: Extensive keloid of previous Pfannenstiel incision Procedure: Patient was consented in preop holding about risks benefits possible complications as well as alternatives to the procedure. After informed consent was obtained patient was taken to the operating room. She received excellent general endotracheal anesthesia and with no complication. She was then placed in the dorsal supine position, prepped and draped in a sterile fashion. A timeout was verified. The healed Pfannenstiel incision with keloid scar was removed sharply with a scalpel, taken down to the fascia. The incision was then approximated and sutured with 4-0 nylon. Steri-Strips were applied. The patient will follow-up in the outpatient setting for removal of her sutures. 5 mL of Kenalog was injected into the incision for healing purposes. Patient's family was notified of her stable condition at the completion of the procedure. The patient was extubated and taken to the recovery area in stable condition. There were no complications. EBL less than 50 mL. All sponge needle and instrument counts were correct x2Chi Li MD
== END 2021-08-03 13:40 | disposition home or self-care (01) ==
LOC: OR 08:35
PROVIDERS: ATTEND Obstetrics & Gynecology
DX: L91.0 Hypertrophic scar (principal); D50.9 Iron deficiency anemia, unspecified; Z79.899 Other long term (current) drug therapy; Z98.891 History of uterine scar from previous surgery; Z72.89 Other problems related to lifestyle; Z98.890 Other specified postprocedural states; Z82.49 Family history of ischemic heart disease and other diseases of the circulatory system
CPT/HCPCS: 11400; 36415; 84703; 85027; J1100; J1170; J1885; J2250; J2405; J2704; J3010; J3301; J3490; J7120; Q9968

== ENCOUNTER 2021-09-01 11:53 | Emergency (ER) | payer MEDICAID ==
[2021-09-01 13:38] LABS: Mean Corpuscular HGB Conc 29 % (30-34); Platelet Count 240 K/mm3 (140-440); Red Blood Count 5.44 M/mm3 (3.65-5.03); Red Cell Distribution Width 19.4 % (13.2-15.2)
[2021-09-01 13:41] LABS: Hematocrit 31.8 % (30.3-42.9); Hemoglobin 9.2 gm/dl (10.1-14.3); Mean Corpuscular Volume 58 fl (79-97)
[2021-09-01] MEDS ORDERED: SODIUM CHLORIDE 0.9% 1000 ML 1,000 ML IV ONE (13:43)
--- NOTE | 2021-09-01 13:45 | Event Note ---
ED Screening Note ED Screening Note: Patient is a 20-year-old female that comes to the ER complaining of weakness, chest pain and shortness of breath. She is very vague and has numerous complaints. She states she might be . Patient does have a history of anemia. This initial assessment/diagnostic orders/clinical plan/treatment(s) is/are subject to change based on patients health status, clinical progression and re- assessment by fellow clinical providers in the ED. Further treatment and workup at subsequent clinical providers discretion. Patient/guardian urged not to elope from the ED as their condition may be serious if not clinically assessed and managed. Initial orders include: EKG Labs UA Concern for or symptomatic anemia
[2021-09-01 14:02] LABS: Alanine Aminotransferase 11 units/L (7-56); Albumin 4.7 g/dL (3.9-5); Blood Urea Nitrogen 8 mg/dL (7-17); Calcium 9.2 mg/dL (8.4-10.2); Hemolysis Index 7
[2021-09-01 14:14] LABS: BUN/Creatinine Ratio 16
--- NOTE | 2021-09-01 15:25 | XRay Report ---
CHEST 2 VIEWS INDICATION / CLINICAL INFORMATION: CP. COMPARISON: None available. FINDINGS: SUPPORT DEVICES: None. HEART / MEDIASTINUM: No significant abnormality. LUNGS / PLEURA: No significant pulmonary or pleural abnormality. No pneumothorax. ADDITIONAL FINDINGS: No significant additional findings. IMPRESSION: 1. No acute findings. Signer Name: Ian Waterman MD Signed: 09/01/2021 3:21 PM Workstation Name: [id number]
[2021-09-01 15:41] LABS: Bilirubin,Urine NEG (Negative); Blood,Urine NEG (Negative); Color,Urine Yellow (Yellow); Hyaline Casts,Urine 2 /LPF; Mucus,Urine 3+ /HPF; Protein,Urine <15 mg/dL mg/dL (Negative); Urobilinogen,Urine < 2.0 mg/dL (<2.0)
[2021-09-01] MEDS ORDERED: POTASSIUM CHLORIDE ER 20 MEQ TAB PO ONE (16:04)
[2021-09-01] MEDS ORDERED: cephALEXin 500 MG CAP PO ONE (16:05)
--- NOTE | 2021-09-01 16:10 | Emergency Department Report ---
ED General Adult HPI - General Chief complaint: Weakness Stated complaint: WEAK/DIZZY/EFRAIN/CHEST PAIN Time Seen by Provider: 09/01/21 13:44 Source: patient Mode of arrival: Ambulatory Limitations: No Limitations - History of Present Illness Initial comments: 20-year-old black female with no past medical history presents to the emergency department for evaluation of chest pain, shortness of breath, dizziness, weakness, and generalized fatigue. She states that she is just felt bad for the past few days. She denies fever, abdominal pain, vaginal discharge, and dysuria. She denies any sick contacts. -: Gradual, days(s) Location: chest, abdomen (2-3) Radiation: non-radiation Severity scale (0 -10): 7 Quality: aching Consistency: intermittent Associated Symptoms: chest pain, loss of appetite, malaise, shortness of breath, weakness. denies: cough, diaphoresis, fever/chills, headaches, nausea/vomiting, rash, seizure, syncope Treatments Prior to Arrival: none - Related Data Home Medications Medication Instructions Recorded Confirmed Last Taken Vitamin D (Nf) 1 tab PO QWEEK 09/13/19 08/03/21 07/27/21 Previous Rx's Medication Instructions Recorded Last Taken Type Ibuprofen [Motrin] 600 mg PO Q8H PRN #60 tablet 08/03/21 Unknown Rx oxyCODONE /ACETAMINOPHEN [Percocet 1 tab PO Q6HR PRN #20 tablet 08/03/21 Unknown Rx 5/325] cephALEXin [Keflex] 500 mg PO Q12HR #14 cap 09/01/21 Unknown Rx Allergies Allergy/AdvReac Type Severity Reaction Status Date / Time No Known Allergies Allergy Verified 07/28/21 17:18 ED Review of Systems ROS: Stated complaint: WEAK/DIZZY/EFRAIN/CHEST PAIN Other details as noted in HPI Comment: All other systems reviewed and negative Constitutional: denies: chills, fever ENT: denies: throat pain, congestion Respiratory: shortness of breath. denies: cough, SOB with exertion, SOB at rest Cardiovascular: chest pain. denies: palpitations, dyspnea on exertion, orthopnea, edema, syncope, paroxysmal nocturnal dyspnea Gastrointestinal: denies: abdominal pain, nausea, vomiting, diarrhea, hematemesis, melena, hematochezia Genitourinary: denies: urgency, dysuria, frequency, hematuria, discharge Musculoskeletal: denies: back pain Skin: denies: rash, lesions Neurological: weakness. denies: headache, numbness, paresthesias, abnormal gait, vertigo ED Past Medical Hx - Past Medical History Hx Hypertension: No Hx Congestive Heart Failure: No Hx Diabetes: No Hx Deep Vein Thrombosis: No Hx Liver Disease: No Hx Renal Disease: No Hx HIV: No Additional medical history: Anemia - Social History Smoking Status: Never Smoker - Medications Home Medications: Home Medications Medication Instructions Recorded Confirmed Last Taken Type Vitamin D (Nf) 1 tab PO QWEEK 09/13/19 08/03/21 07/27/21 History Ibuprofen [Motrin] 600 mg PO Q8H PRN #60 tablet 08/03/21 Unknown Rx oxyCODONE /ACETAMINOPHEN [Percocet 1 tab PO Q6HR PRN #20 tablet 08/03/21 Unknown Rx 5/325] cephALEXin [Keflex] 500 mg PO Q12HR #14 cap 09/01/21 Unknown Rx ED Physical Exam - General Limitations: No Limitations General appearance: alert, in no apparent distress - Head Head exam: Present: atraumatic, normocephalic - Eye Eye exam: Present: normal appearance. Absent: conjunctival injection - Neck Neck exam: Present: normal inspection, full ROM. Absent: lymphadenopathy - Respiratory Respiratory exam: Present: normal lung sounds bilaterally. Absent: respiratory distress, wheezes, rales, rhonchi, stridor, chest wall tenderness, accessory muscle use - Cardiovascular Cardiovascular Exam: Present: regular rate, normal heart sounds - GI/Abdominal GI/Abdominal exam: Present: soft, normal bowel sounds. Absent: distended, tenderness, guarding, rebound, rigid - Extremities Exam Extremities exam: Present: normal inspection, full ROM, normal capillary refill. Absent: pedal edema, joint swelling, calf tenderness - Back Exam Back exam: Present: normal inspection. Absent: tenderness, CVA tenderness (R), CVA tenderness (L), vertebral tenderness - Neurological Exam Neurological exam: Present: alert, oriented X3, CN II-XII intact, normal gait, reflexes normal. Absent: motor sensory deficit - Psychiatric Psychiatric exam: Present: normal affect, normal mood - Skin Skin exam: Present: warm, dry, intact, normal color ED Course Vital Signs 09/01/21 12:49 Temperature 99.1 F Pulse Rate 92 H Respiratory 18 Rate Blood Pressure 131/94 O2 Sat by Pulse 100 Oximetry ED Medical Decision Making - Lab Data Result diagrams: 09/01/21 Unknown 09/01/21 13:12 - EKG Data Interpretation: no acute changes, normal EKG - Radiology Data Radiology results: report reviewed, image reviewed Chest x-ray: FINDINGS: SUPPORT DEVICES: None. HEART / MEDIASTINUM: No significant abnormality. LUNGS / PLEURA: No significant pulmonary or pleural abnormality. No pneumothorax. ADDITIONAL FINDINGS: No significant additional findings. IMPRESSION: 1. No acute findings. - Medical Decision Making 20-year-old black female with no past medical history presents to the emergency department for evaluation of chest pain, shortness of breath, dizziness, weakness, and generalized fatigue. She states that she is just felt bad for the past few days. She denies fever, abdominal pain, vaginal discharge, and dysuria. She denies any sick contacts. Patient states that dizziness has resolved, and she also denies chest pain and shortness of breath at this time. No gross abnormalities noted on labs, but she was noted to be slightly hypokalemic, so she was treated with one-time dose of 40 mEq of potassium chloride p.o. EKG with no acute ischemic changes noted, troponin negative, and chest x-ray within normal limits. Patient noted to have a urinary tract infection, and she will be treated with 7-day course of Keflex. No acute distress noted. She is advised to take medications as prescribed, drink plenty of noncaffeinated fluids, and follow-up with primary care provider if no improvement or worsening symptoms. She verbalized understanding of and agreement with plan of care. Critical care attestation.: If time is entered above; I have spent that time in minutes in the direct care of this critically ill patient, excluding procedure time. ED Disposition Clinical Impression: Hypokalemia UTI (urinary tract infection) Qualifiers: Urinary tract infection type: acute cystitis Hematuria presence: without hematuria Qualified Code(s): N30.00 - Acute cystitis without hematuria Disposition: HOME / SELF CARE / HOMELESS Is pt being admited?: No Does the pt Need Aspirin: No Condition: Stable Instructions: Antibiotic Medicine, Adult, [id number], Hypokalemia, Urinary Tract Infection, Adult, [id number] Additional Instructions: Take medications as prescribed. Drink plenty of noncaffeinated fluids. Follow- up with primary care provider for further evaluation. Return to the emergency department for any concerning symptoms. Prescriptions: cephALEXin [Keflex] 500 mg PO Q12HR #14 cap Referrals: PRIMARY CARE, [Primary Care Provider] - 3-5 Days Forms: Work/School Release Form(ED) Time of Disposition: 16:11
[2021-09-01 16:52] VITALS: BP 130/78
--- NOTE | 2021-09-02 14:26 | Electrocardiograph Report ---
[facility] Test Date: 2021-09-01 Test Time: 12:55:27 Pat Name: WAYNE NAVARRETE Department: Room: Gender: F Axle Turner: VIANEY : 2000 Requested By: SHARI HUERTAS Order Number: [id number] Reading MD: Izabel Morgan Measurements Intervals [place] Rate: 79 P: 59 AR: 165 QRS: 47 QRSD: 73 T: -4 QT: 363 QTc: 415 Interpretive Statements Sinus rhythm Probable left atrial enlargement No previous ECG available for comparison Electronically Signed On 09-02-2021 14:25:28 EDT by Izabel Morgan
== END 2021-09-01 16:52 | disposition home or self-care (01) ==
LOC: ED 11:53
DX: N39.0 Urinary tract infection, site not specified (principal); E87.6 Hypokalemia
CPT/HCPCS: 36415; 71046; 80053; 81001; 84484; 84703; 85027; 93005; 96360; 96361; 99284; J7030; Q0162

== ENCOUNTER 2021-11-10 09:32 | Emergency (ER) | payer OTHER ==
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
[2021-11-10 12:23] VITALS: BP 108/56
== END 2021-11-10 12:41 | disposition home or self-care (01) ==
LOC: ED 09:32
DX: T14.8XXA Other injury of unspecified body region, initial encounter (principal); D64.9 Anemia, unspecified; V49.9XXA Car occupant (driver) (passenger) injured in unspecified traffic accident, initial encounter; Y93.89 Activity, other specified; Y92.89 Other specified places as the place of occurrence of the external cause; Y99.8 Other external cause status
CPT/HCPCS: 99282

== ENCOUNTER 2022-01-03 01:19 | Emergency (ER) | payer SELFPAY ==
[2022-01-03 03:17] LABS: Basophils % (Auto) 0.5 % (0.0-1.8); Eosinophils % (Auto) 0.2 % (0.0-4.3); Hematocrit 29.3 % (30.3-42.9); Lymphocytes # (Auto) 1.1 K/mm3 (1.2-5.4); Lymphocytes % (Auto) 12.4 % (13.4-35.0); Mean Corpuscular HGB Conc 31 % (30-34); Mean Corpuscular Volume 59 fl (79-97); Monocytes # (Auto) 0.5 K/mm3 (0.0-0.8); Platelet Count 193 K/mm3 (140-440); Red Blood Count 5.01 M/mm3 (3.65-5.03); Red Cell Distribution Width 20.7 % (13.2-15.2)
[2022-01-03 04:36] LABS: Bacteria,Urine 1+ /HPF (Negative); Mucus,Urine 3+ /HPF; RBC,Urine < 1.0 /HPF (0.0-6.0)
--- NOTE | 2022-01-03 04:42 | XRay Report ---
ABDOMEN 2 VIEWS INDICATION / CLINICAL INFORMATION: Unspecified abdominal pain for 3 days. COMPARISON: None available. FINDINGS: TUBES / LINES: None. BOWEL GAS PATTERN: No significant abnormality. FREE AIR / EXTRALUMINAL GAS: None seen. ADDITIONAL FINDINGS: No significant additional findings. CHEST: Visualized chest shows no significant abnormality. IMPRESSION: 1. No significant abnormality. Signer Name: Eduardo Velazquez MD Signed: 01/03/2022 4:38 AM Workstation Name: [id number]
[2022-01-03 04:48] LABS: Bilirubin,Urine Negative (Negative); Blood,Urine Negative (Negative); Color,Urine Yellow (Yellow); Urobilinogen,Urine < 2.0 mg/dL (<2.0)
[2022-01-03] MEDS ORDERED: ACETAMINOPHEN 500 MG TAB PO ONE (12:06)
[2022-01-03] MEDS ORDERED: IBUPROFEN 400 MG TAB PO ONE (12:06)
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
[2022-01-03 13:44] VITALS: BP 110/65
--- NOTE | 2022-01-04 09:48 | Electrocardiograph Report ---
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
== END 2022-01-03 13:42 | disposition home or self-care (01) ==
LOC: ED 01:19
DX: R07.89 Other chest pain (principal); D64.9 Anemia, unspecified; Z91.19 Patient's noncompliance with other medical treatment and regimen; F17.200 Nicotine dependence, unspecified, uncomplicated; Z72.89 Other problems related to lifestyle; Z79.899 Other long term (current) drug therapy
CPT/HCPCS: 36415; 74019; 81001; 84702; 85025; 93005; 99284